=== PATIENT | male | born 1995 | race Caucasian/White ===

== ENCOUNTER 2023-07-23 18:04 | Emergency (ER) | payer SELFPAY ==
[~2023-07-23] VITALS: Ht 177.8 cm; Wt 108.9 kg
[2023-07-23] MEDS ORDERED: HYDR-4209 PO (19:45)
[2023-07-23] MEDS ORDERED: HYDR-3980 PO (20:05)
[2023-07-23 21:20] VITALS: BP 116/65; O2SAT 97
== END 2023-07-23 20:30 | disposition home or self-care (01) ==
LOC: ER 18:12
DX: S92.242A Displaced fracture of medial cuneiform of left foot, initial encounter for closed fracture (principal); W18.39XA Other fall on same level, initial encounter; Y93.89 Activity, other specified; Y92.89 Other specified places as the place of occurrence of the external cause; Y99.8 Other external cause status
CPT/HCPCS: 73630; 73700; A4663